=== PATIENT | male | born 1970 | race African-American/Black ===

== ENCOUNTER 2025-04-09 08:09 | Emergency (ER) | payer MEDICAID, OTHER, SELFPAY ==
[2025-04-09 08:27] LABS: Glucose, Urine (Dipstick) Negative (Negative); Leukocyte Negative (Negative); Protein, Urine (Dipstick) Negative (Neg-Trace); Specific Gravity, Urine 1.020 (1.005-1.030)
[2025-04-09 08:36] LABS: CAUTI Indications for Culture Pelvic or flank pain; WBC/HPF 0-3 HPF (0-3)
[2025-04-09 08:37] LABS: Urine Culture Reflex No No
[2025-04-09] MEDS ORDERED: cefTRIAXone (ROCEPHIN) 500 MG VIAL ONE (08:43)
[2025-04-09 14:43] LABS: Chlam.trachomatis by PCR,Urine Not Detected (NotDetected); GC N.gonorrhoeae PCR,UrineVOID Not Detected (NotDetected)
== END 2025-04-09 09:05 | disposition home or self-care (01) ==
LOC: NAV ERS 08:09
DX: M54.50 Low back pain, unspecified (principal); R30.0 Dysuria; F17.200 Nicotine dependence, unspecified, uncomplicated
CPT/HCPCS: 81001; 87491; 87591; 96372; 99283; J0696; J1885